=== PATIENT | female | born 1970 | race Caucasian/White ===

== ENCOUNTER 2016-09-19 19:42 | Emergency (ER) | payer OTHER ==
[~2016-09-19] VITALS: Ht 162.6 cm; Wt 54.9 kg
[~2016-09-19 19:42] MED LIST: ADVIL200 MG PO; BACTRIM,SEPT1 TABLET PO; IBUPROFEN800 MG PO; LOVASTATIN20 MG PO; MOTRIN600 MG PO; NAPROSYN500 MG PO; PERCOCET 5/31 TABLET PO
[2016-09-19 19:55] VITALS: BP 138/59
[2016-09-19] MEDS ORDERED: VENTOLIN HFA18 GM IH (23:09)
[2016-09-19] MEDS ORDERED: PREDNISONE20 MG PO (23:09)
== END 2016-09-19 23:31 | disposition home or self-care (01) ==
LOC: RME 19:42 → EME 19:42 → RME 23:31
DX: J20.9 Acute bronchitis, unspecified (principal); F17.210 Nicotine dependence, cigarettes, uncomplicated
CPT/HCPCS: 71020; 94640; 99281; 99284; J7512